=== PATIENT | male | born 1970 | race Asian ===

== ENCOUNTER 2019-06-04 13:13 | Day surgery (SDC) | payer OTHER ==
[2019-05-22 16:06] VITALS: BMI 26.2
--- NOTE | 2019-06-04 07:38 | OP ---
Operative Note - Note: Operative Date: 06/04/19 Pre-Operative Diagnosis: Right partial tear of rotator cuff Operation: right shoulder arthroscopy with rotator cuff repair Post-Operative Diagnosis: Same as Pre-op Surgeon: Jd Artis Publication Manager: Dasia Schultz Anesthesia: Fractional Operative Report Dictated: Yes
[2019-06-04] MEDS ORDERED: ROPIVACAINE HCL 0.5% 30ML VIAL ONE (15:00)
[2019-06-04] MEDS ORDERED: MIDAZOLAM HCL 2 MG/2 ML SINGLE DOSE VIAL ONE (15:00)
[2019-06-04] MEDS ORDERED: PROPOFOL 20 ML ONE ×5 (16:02→16:50)
[2019-06-04] MEDS ORDERED: KETOROLAC TROMETHAMINE 30 MG/1 ML VIAL ONE (16:12)
[2019-06-04] MEDS ORDERED: ceFAZolin SODIUM 1 GM VIAL ONE (16:12)
[2019-06-04] MEDS ORDERED: ONDANSETRON 4 MG/2 ML VIAL ONE (16:12)
[2019-06-04] MEDS ORDERED: DEXAMETHASONE SOD PHOSPHATE 4 MG/1 ML VIAL ONE (16:12)
[2019-06-04] MEDS ORDERED: ONDANSETRON 4 MG/2 ML VIAL IVPUSH PRN (17:20)
[2019-06-04] MEDS ORDERED: PROMETHAZINE HCL 25 MG/1 ML VIAL IVPUSH PRN (17:20)
[2019-06-04] MEDS ORDERED: oxyCODONE HCL 5 MG TABLET PO PRN (17:20)
[2019-06-04] MEDS ORDERED: ACETAMINOPHEN 1000 MG/100 ML VIAL (NON FORMULARY) IVPB ONE (17:21)
[2019-06-04] MEDS ORDERED: ACETAMINOPHEN INJECTION 100 ML IVPB ONE (17:35)
--- NOTE | 2019-06-04 18:06 | OP ---
DATE OF OPERATION: 06/04/2019 PREOPERATIVE DIAGNOSIS: Right shoulder partial thickness rotator cuff tear, possible frozen shoulder, possible biceps tendinopathy. POSTOPERATIVE DIAGNOSIS: Right frozen shoulder, subacromial bursitis. SURGEON: Calvin Rodriguez MD ACCOUNTS SPECIALIST: KAMALA Keith, whose skillful assistance was necessary for the safe and timely performance of this procedure. Dasia was able to provide limb positioning, retraction, assist in driving the camera, as well as procedure. ANESTHESIA: Regional plus sedation. POSTOPERATIVE CONDITION: Stable. COMPLICATIONS: None. INDICATIONS: This is a pleasant 48-year-old gentleman who had been having persistent right shoulder pain which failed to improve with conservative measures. The option of arthroscopy was discussed with the patient. The operative risks were reviewed in detail, including bleeding, infection, neurovascular injury, need for further surgery, postoperative pain and stiffness. We discussed medical risks, such as heart attack, stroke, DVT, PE and . I addressed the use of perioperative antibiotic and DVT prophylaxis. I reviewed the postoperative rehabilitation protocol, which varies widely based on the exact pathology encountered within the shoulder. I addressed all the patient's questions and concerns. He voiced understanding and elected to proceed. DESCRIPTION OF PROCEDURE: The patient was brought to the operating room after the administration of a regional block in the preoperative holding area. He was placed in the beach chair position while awake, careful to pad all the bony prominences and maintain the cervical spine in neutral alignment. The patient was then prepped and draped in the usual sterile fashion. A preoperative dose of antibiotics was given, and the usual time-out procedure was performed. The right upper extremity was now examined. It was passed through a range of motion. Forward flexion was to 140 degrees. External rotation was to 40 degrees. Internal rotation was to . The shoulder was then manipulated, gaining forward flexion to 170 degrees, and external rotation to 65 degrees. Palpable rip of tissue was felt as the manipulation was being performed. The patient was then marked and a posterior viewing portal was established. The joint was quite tight getting in the camera. The 1st portal was slightly too medial, so a 2nd portal was made more laterally. The camera was now passed into the glenohumeral joint. Examination of the glenoid surface demonstrated mild articular wear. There was an anteroinferior chronic-appearing labral tear without instability. The joint itself demonstrated diffuse significant synovitis and thickening of the tissues. Utilizing the RF probe as well as shaver, the synovitis was debrided. In addition, given the frozen shoulder, the rotator interval was debrided. The interval tissue was noted to be significantly thickened. The subscapularis was identified and noted to have no pathology. The biceps had a normal appearance. The supraspinatus and infraspinatus also appeared unremarkable. The camera was now removed from the joint and passed into the subacromial space. Here, dense bursitis was encountered. Utilizing the shaver as well as the RF probe, this was debrided, exposing the rotator cuff and undersurface of the acromion. No bony impingement was noted. No bridget rotator cuff tear was identified as the shoulder was abducted and externally rotated all the way to 90 degrees of external rotation at this point and internally rotated to examine the full attachment. At this point, the excess fluid was withdrawn from the joint. The portals were sutured using 3-0 nylon. Sterile dressings were placed. The patient was transferred to the recovery room in stable condition. CALVIN RODRIGUEZ M.D. [id number]
[2019-06-04 18:34] VITALS: BP 126/76
[2019-06-04 18:57] VITALS: PULSE 75; TEMP 98.3
== END 2019-06-04 18:55 | disposition home or self-care (01) ==
LOC: FASU 13:13
PROVIDERS: ATTEND Orthopaedic Surgery Sports Medicine
PROC: 0RBJ4ZZ Excision of Right Shoulder Joint, Percutaneous Endoscopic Approach (ICD-10-PCS; principal; 2019-06-04 16:24)
PROC: 0RNJXZZ Release Right Shoulder Joint, External Approach (ICD-10-PCS; 2019-06-04 16:24)
DX: M75.01 Adhesive capsulitis of right shoulder (principal); M75.51 Bursitis of right shoulder
CPT/HCPCS: 82962; 94760; J0131